=== PATIENT | female | born 1935 | race African-American/Black ===

== ENCOUNTER 2017-03-03 20:36 | Emergency (ER) | payer MEDICARE, OTHER ==
[~2017-03-03] VITALS: Ht 162.6 cm; Wt 120.0 kg
[2017-03-03 21:05] VITALS: BP 159/67
== END 2017-03-04 00:45 | disposition left against medical advice (07) ==
LOC: ER 21:04
DX: I10 Essential (primary) hypertension (principal); Z53.21 Procedure and treatment not carried out due to patient leaving prior to being seen by health care provider